=== PATIENT | male | born 1985 | race Caucasian/White ===

== ENCOUNTER 2017-06-23 04:32 | Emergency (ER) | payer OTHER ==
[~2017-06-23] VITALS: Ht 180.3 cm; Wt 79.3 kg
[~2017-06-23 04:32] MED LIST: NAPROXEN500 MG PO; NOHOMEMEDS; PEN-VEE K,VEET500 MG PO
[2017-06-23 07:07] LABS: APPEARANCE CLEAR ((CLEAR)); BILIRUBIN NEGATIVE; BLOOD NEGATIVE; COLOR YELLOW ((YELLOW)); GLUCOSE (STRIP) NEGATIVE; KETONES NEGATIVE; LEUKOCYTES NEGATIVE; NITRITE NEGATIVE; PROTEIN (STRIP) NEGATIVE; SPECIFIC GRAVITY 1.014 (1.000-1.030); UCUL ADDED? NO; UROBILINOGEN 0.2 MG/DL (0.2-1.0)
[2017-06-23] MEDS ORDERED: MOTRIN800 MG PO (10:14)
[2017-06-23] MEDS ORDERED: FLEXERIL10 MG PO (10:14)
[2017-06-23 10:23] VITALS: BP 118/72
== END 2017-06-23 10:24 | disposition home or self-care (01) ==
LOC: EME 04:32
PROVIDERS: Physician Assistant
DX: S39.011A Strain of muscle, fascia and tendon of abdomen, initial encounter (principal); X50.0XXA Overexertion from strenuous movement or load, initial encounter; K21.9 Gastro-esophageal reflux disease without esophagitis; F17.200 Nicotine dependence, unspecified, uncomplicated
CPT/HCPCS: 76870; 81003; 99281; 99283